=== PATIENT | female | born 1990 | race Caucasian/White ===

== ENCOUNTER 2017-01-10 07:56 | Day surgery (SDC) | payer OTHER ==
[~2017-01-10 07:56] MED LIST: Lactated Ringers 1,000 ML IV SCH; Lidocaine 1%/Sod Bicarbonate in NS 8.4% 1 ML Syringe IV PRN; Sodium Chloride 0.9% 10 ML Syringe FLUSH PRN
--- NOTE | 2017-01-10 08:40 | PCM.PREANE ---
Preanesthetic Assessment - Anesthesia/Transfusion/Family Hx Anesthesia History: Prior Anesthesia Reaction Type of Anesthesia Reaction: Excessive Nausea/Vomiting Family History of Anesthesia Reaction: No Transfusion History: No Prior Transfusion(s) - Review of Systems General: No Symptoms Pulmonary: No Symptoms Cardiovascular: No Symptoms Gastrointestinal: Abdominal pain Neurological: No Symptoms Other: Reports: None - Physical Assessment NPO Status Date: 01/09/17 NPO Status Time: 17:00 Pulse: 75 O2 Sat by Pulse Oximetry: 96 Respiratory Rate: 16 Blood Pressure: 100/65 Temperature: 36.2 C Vital Signs: Last Vital Signs Temp 36.2 C 01/10/17 08:08 Pulse 75 01/10/17 08:08 Resp 16 01/10/17 08:08 BP 100/65 01/10/17 08:08 Pulse Ox 96 01/10/17 08:08 Height: 1.73 m Weight: 85.729 kg ASA Class: 2 Mental Status: Alert & Oriented x3 Dentition: Reports: Implants (top left and metal bar on lower teeth) Thyro-Mental Finger Breadths: 3 Mouth Opening Finger Breadths: 3 ROM/Head Extension: Full Lungs: Clear to auscultation, Normal respiratory effort Cardiovascular: Regular Rate, Regular Rhythm, No Murmurs - Lab Values: Laboratory Last Values WBC 9.91 K/mm3 (3.98-10.04) 01/09/17 13:28 RBC 4.81 M/mm3 (3.98-5.22) 01/09/17 13:28 Hgb 14.4 gm/L (11.2-15.7) 01/09/17 13:28 Hct 42.5 % (34.1-44.9) 01/09/17 13:28 MCV 88.4 fl (79.4-94.8) 01/09/17 13:28 MCH 29.9 pg (25.6-32.2) 01/09/17 13:28 MCHC 33.9 g/dl (32.2-35.5) 01/09/17 13:28 RDW Std Deviation 41.9 fL (36.4-46.3) 01/09/17 13:28 Plt Count 386 K/mm3 (182-369) H 01/09/17 13:28 MPV 9.6 fl (9.4-12.3) 01/09/17 13:28 Neut % (Auto) 62.8 % (34.0-71.1) 01/09/17 13:28 Lymph % (Auto) 26.4 % (19.3-51.7) 01/09/17 13:28 [place] % (Auto) 8.1 % (4.7-12.5) 01/09/17 13:28 Eos % (Auto) 2.3 (0.7-5.8) 01/09/17 13:28 Baso % (Auto) 0.2 % (0.1-1.2) 01/09/17 13:28 Neut # (Auto) 6.22 K/mm3 (1.56-6.13) H 01/09/17 13:28 Lymph # (Auto) 2.62 K/mm3 (1.18-3.74) 01/09/17 13:28 [place] # (Auto) 0.80 K/mm3 (0.24-0.36) H 01/09/17 13:28 Eos # (Auto) 0.23 K/mm3 (0.04-0.36) 01/09/17 13:28 Baso # (Auto) 0.02 K/mm3 (0.01-0.08) 01/09/17 13:28 Creatinine 0.9 mg/dL (0.55-1.02) 01/09/17 13:28 Est Cr Clr Drug Dosing 95.55 mL/min 01/09/17 13:28 Estimated GFR (MDRD) > 60 mL/min (>60) 01/09/17 13:28 Urine Color Yellow (Yellow) 01/09/17 13:28 Urine Appearance Clear (Clear) 01/09/17 13:28 Urine pH 6.5 (5.0-8.0) 01/09/17 13:28 Ur Specific [place] 1.025 (1.005-1.030) 01/09/17 13:28 Urine Protein Trace (Negative) H 01/09/17 13:28 Urine Glucose (UA) Negative (Negative) 01/09/17 13:28 Urine Ketones Negative (Negative) 01/09/17 13:28 Urine Occult Blood Negative (Negative) 01/09/17 13:28 Urine Nitrite Negative (Negative) 01/09/17 13:28 Urine Bilirubin Negative (Negative) 01/09/17 13:28 Urine Urobilinogen 1.0 (0.2-1.0) 01/09/17 13:28 Ur Leukocyte Esterase Trace (Negative) H 01/09/17 13:28 Urine HCG, Qual Negative (NEGATIVE) 01/09/17 13:28 - Allergies Allergies/Adverse Reactions: Allergies Allergy/AdvReac Type Severity Reaction Status Date / Time morphine Allergy Intermediate Itching Verified 01/09/17 14:57 - Anesthesia Plan Pre-Op Medication Ordered: None - Acknowledgements Anesthesia Type Planned: General Anesthesia Pt an Appropriate Candidate for the Planned Anesthesia: Yes Alternatives and Risks of Anesthesia Discussed w Pt/Guardian: Yes Pt/Guardian Understands and Agrees with Anesthesia Plan: Yes PreAnesthesia Questionnaire Cardiovascular History: Reports: None Respiratory History: Reports: None Gastrointestinal History: Reports: Inflammatory bowel disease Genitourinary History: Reports: None 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 History: Reports: None Neurological History: Reports: None Psychiatric History: Reports: None Endocrine/Metabolic History: Reports: None Hematologic History: Reports: None Immunologic History: Reports: None Oncologic (Cancer) History: Reports: None Dermatologic History: Reports: None - Past Surgical History Head Surgeries/Procedures: Reports: None HEENT Surgical History: Reports: Tonsillectomy GI Surgical History: Reports: Colonoscopy - SUBSTANCE USE Smoking Status *Q: Never Smoker Second Hand Smoke Exposure: No Days Per Week of Alcohol Use: 0 Number of Drinks Per Day: 0 Total Drinks Per Week: 0 Recreational Drug Use History: No - HOME MEDS Home Medications: Home Meds Desogestrel/Ethinyl Estradiol [Apri] 1 tab PO DAILY 01/09/17 [History] - CURRENT (IN HOUSE) MEDS Current Meds: Current Medications Lactated Ringer's (Ringers, Lactated) 1,000 mls @ 125 mls/hr IV ASDIRECTED HARRISON Stop: 01/10/17 23:00 Lidocaine/Sodium Bicarbonate (Buffered Lidocaine 1% In Ns 8.4%) 0.25 ml IV ONETIME PRN PRN Reason: Prior to IV Start Stop: 01/10/17 18:00 Sodium Chloride (Saline Flush) 10 ml FLUSH ASDIRECTED PRN PRN Reason: Keep Vein Open Stop: 01/10/17 18:00 Preanesthetic Assessment - ANESTHESIA/TRANSFUSION/FAMILY HX Anesthesia/Transfusion History: No Prior Transfusion(s), Prior Anesthesia ( nausea) Family History of Anesthesia Reaction: No Intubation History: Unknown - PHYSICAL ASSESSMENT O2 Sat by Pulse Oximetry: 96 RR: 16 Vital Signs: Last Vital Signs Temp 36.2 C 01/10/17 08:08 Pulse 75 01/10/17 08:08 Resp 16 01/10/17 08:08 BP 100/65 01/10/17 08:08 Pulse Ox 96 01/10/17 08:08 Height: 1.73 m Weight: 85.729 kg NPO Status Date: 01/09/17 NPO Status Time: 17:00 - LAB Values: Laboratory Last Values WBC 9.91 K/mm3 (3.98-10.04) 01/09/17 13:28 RBC 4.81 M/mm3 (3.98-5.22) 01/09/17 13:28 Hgb 14.4 gm/L (11.2-15.7) 01/09/17 13:28 Hct 42.5 % (34.1-44.9) 01/09/17 13:28 MCV 88.4 fl (79.4-94.8) 01/09/17 13:28 MCH 29.9 pg (25.6-32.2) 01/09/17 13:28 MCHC 33.9 g/dl (32.2-35.5) 01/09/17 13:28 RDW Std Deviation 41.9 fL (36.4-46.3) 01/09/17 13:28 Plt Count 386 K/mm3 (182-369) H 01/09/17 13:28 MPV 9.6 fl (9.4-12.3) 01/09/17 13:28 Neut % (Auto) 62.8 % (34.0-71.1) 01/09/17 13:28 Lymph % (Auto) 26.4 % (19.3-51.7) 01/09/17 13:28 [place] % (Auto) 8.1 % (4.7-12.5) 01/09/17 13:28 Eos % (Auto) 2.3 (0.7-5.8) 01/09/17 13:28 Baso % (Auto) 0.2 % (0.1-1.2) 01/09/17 13:28 Neut # (Auto) 6.22 K/mm3 (1.56-6.13) H 01/09/17 13:28 Lymph # (Auto) 2.62 K/mm3 (1.18-3.74) 01/09/17 13:28 [place] # (Auto) 0.80 K/mm3 (0.24-0.36) H 01/09/17 13:28 Eos # (Auto) 0.23 K/mm3 (0.04-0.36) 01/09/17 13:28 Baso # (Auto) 0.02 K/mm3 (0.01-0.08) 01/09/17 13:28 Creatinine 0.9 mg/dL (0.55-1.02) 01/09/17 13:28 Est Cr Clr Drug Dosing 95.55 mL/min 01/09/17 13:28 Estimated GFR (MDRD) > 60 mL/min (>60) 01/09/17 13:28 Urine Color Yellow (Yellow) 01/09/17 13:28 Urine Appearance Clear (Clear) 01/09/17 13:28 Urine pH 6.5 (5.0-8.0) 01/09/17 13:28 Ur Specific [place] 1.025 (1.005-1.030) 01/09/17 13:28 Urine Protein Trace (Negative) H 01/09/17 13:28 Urine Glucose (UA) Negative (Negative) 01/09/17 13:28 Urine Ketones Negative (Negative) 01/09/17 13:28 Urine Occult Blood Negative (Negative) 01/09/17 13:28 Urine Nitrite Negative (Negative) 01/09/17 13:28 Urine Bilirubin Negative (Negative) 01/09/17 13:28 Urine Urobilinogen 1.0 (0.2-1.0) 01/09/17 13:28 Ur Leukocyte Esterase Trace (Negative) H 01/09/17 13:28 Urine HCG, Qual Negative (NEGATIVE) 01/09/17 13:28 - ALLERGIES Allergies/Adverse Reactions: Allergies Allergy/AdvReac Type Severity Reaction Status Date / Time morphine Allergy Intermediate Itching Verified 01/09/17 14:57
[2017-01-10] MEDS ORDERED: Bupivacaine 0.5% 30 ML SDV ONE (08:48)
[2017-01-10] MEDS ORDERED: Rocuronium 50 MG/5 ML Vial ONE (09:00)
[2017-01-10] MEDS ORDERED: Ondansetron 4 MG/2 ML SDV ONE (09:00)
[2017-01-10] MEDS ORDERED: fentaNYL 250 MCG/5 ML SDV ONE (09:01)
[2017-01-10] MEDS ORDERED: Midazolam 1 MG/ML 2 ML SDV ONE (09:01)
[2017-01-10] MEDS ORDERED: Propofol 200 MG/20 ML SDV ONE (09:01)
[2017-01-10] MEDS ORDERED: Dexamethasone 4 MG/ML 5 ML MDV ONE (09:02)
[2017-01-10] MEDS ORDERED: Ketorolac 30 MG/ML SDV ONE (09:02)
[2017-01-10] MEDS ORDERED: diphenhydrAMINE 50 MG/ML SDV ONE (09:02)
[2017-01-10] MEDS ORDERED: ceFAZolin 1 GM Vial ONE (09:02)
[2017-01-10] MEDS ORDERED: Lidocaine 1% 4 ML ONE (09:02)
[2017-01-10] MEDS ORDERED: Lactated Ringers 1,000 ML ONE (09:56)
[2017-01-10] MEDS ORDERED: Acetaminophen/oxyCODONE 325-5 MG Tab PO PRN (10:08)
[2017-01-10] MEDS ORDERED: Ondansetron 4 MG/2 ML SDV IVPUSH PRN (10:08)
--- NOTE | 2017-01-10 10:18 | PCM.OPNOTE ---
- General Post-Op/Procedure Note Date of Surgery/Procedure: 01/10/17 Operative Procedure(s): Laparoscopy with biopsy and cautery ablation of pelvic endometriosis Findings: Of endometriosis involving posterior sac, posterior broad ligaments and the left inguinal canal area. Appendix was surgically absent. The anterior cul-de- sac, ovaries, liver edge gallbladder without concerns. 2 small douglas from previous appendectomy were noted on the right ovary and the right posterior broad ligament respectively and were removed. Pre Op Diagnosis: Pelvic pain, endometriosis Post-Op Diagnosis: Same Primary Surgeon: Mata Pozo Secondary Surgeon: Rylee Garcia Anesthesia Provider: Kuldip Khan Resistance Welder: Deanna Max Pathology: Biopsy of posterior cul-de-sac epithelium Fluid Replacement, Intraop: 1,300 Output, Urine Amount: 300 EBL in mLs: 3 Drain/Tube Comments:: Indwelling bladder catheter during surgery only. Complications: None Condition: Good Free Text/Narrative:: Surgeon duration: 20 minutes Complications: None Specimens: Biopsy of the posterior cul-de-sac epithelium Her suture: The patient is taken to the operating room placed in supine position on the operating table. She received 2 g of Ancef preoperatively for infection prophylaxis. She had sequential pressure stockings in place for DVT prophylaxis. After adequate anesthesia patient was placed in a dorsal lithotomy position and prepped and draped in usual fashion. A indwelling bladder catheter was placed as was a uterine manipulator. Patient repositioned to the near supine position with legs in stirrups. The infraumbilical laparoscopic port site and subpubic site were then infiltrated with lidocaine approximately 3-4 cc each. Incisions were made 5 mm in length. Peritoneal is placed and pneumoperitoneum was established with a minimal amount of difficulty. Laparoscopic trocar and sleeve were placed and pneumoperitoneum was fully established. Evaluation of the pelvis and upper abdomen was undertaken. The appendix was surgically absent. Liver edge and gallbladder were noted to be normal. The entry cul-de-sac was without concerns. Right ovary and left ovary were also within normal as were the bilateral fallopian tubes. Posterior cul-de- sac however had multiple pigmented areas consistent with endometriosis. Numerous areas of clear vesicles were also noted. Findings most probably consistent with endometriosis. A public service representative area of peritoneum on the right uterosacral ligament was biopsied for histologic evaluation. The areas were then cauterized with unipolar cautery. 2 douglas, which had been placed at the time of her appendectomy, were noted on the right ovary and the right posterior broad ligament respectively and were removed. The procedures and discontinued. The pneumoperitoneum was reversed after the lower sleeve was removed under direct visualization. The incisions were closed with a single interrupted suture of 3-0 Monocryl. There further approximated with Dermabond skin glue. The indwelling bladder catheter and uterine manipulator removed at the end of procedure. Sponge, instrument and needle counts are correct at the end of procedure. Patient was awakened from general endotracheal anesthesia and left the operating room in good condition.
--- NOTE | 2017-01-10 10:24 | PCM.POSTAN ---
POST ANESTHESIA ASSESSMENT - MENTAL STATUS Mental Status: somnolent - VITAL SIGNS Pulse Rate: 82 SaO2: 95 Resp Rate: 15 Blood Pressure: 126/87 Temperature: 36.6 C - RESPIRATORY Respiratory Status: respiratory rate WNL, airway patent, O2 saturation stable, supplemental oxygen - CARDIOVASCULAR CV Status: pulse rate WNL, blood pressure stable - GASTROINTESTINAL GI Status: no symptoms - PAIN Pain Score: 0 - POST OP HYDRATION Hydration Status: adequate & stable - OBSERVATIONS Free Text/Narrative:: no anesthesia complications noted
[2017-01-10] MEDS ORDERED: fentaNYL 250 MCG/5 ML SDV IVPUSH PRN (10:27)
[2017-01-10] MEDS ORDERED: Neostigmine Methylsulfate 1 MG/ML 5 ML Syringe ONE (10:27)
[2017-01-10] MEDS: fentaNYL 100 MCG/2 ML SDV IVPUSH PRN ×2 (10:28→10:40)
[2017-01-10 12:20] VITALS: BP 105/66
[2017-01-10] MEDS ORDERED: traMADol 50 MG Tab PO ONE (12:30)
== END 2017-01-10 12:56 | disposition home or self-care (01) ==
LOC: JD.SDS 07:56
PROVIDERS: ATTEND Obstetrics & Gynecology
PROC: 0U5F4ZZ Destruction of Cul-de-sac, Percutaneous Endoscopic Approach (ICD-10-PCS; principal; 2017-01-10)
PROC: 0U544ZZ Destruction of Uterine Supporting Structure, Percutaneous Endoscopic Approach (ICD-10-PCS; 2017-01-10)
DX: N80.9 Endometriosis, unspecified (principal); Z88.6 Allergy status to analgesic agent
CPT/HCPCS: 36415; 58662; 81003; 81025; 82565; 85025; 87086; 88305; A9270; J0690; J1100; J1200; J1885; J2250; J2405; J2710; J3010; J7120; 00940; J2704

== ENCOUNTER 2017-10-24 13:45 | Emergency (ER) | payer OTHER ==
[2017-10-24 14:03] VITALS: BP 119/72
[2017-10-24] MEDS ORDERED: Sodium Chloride 0.9% 10 ML Syringe FLUSH PRN (14:49)
[2017-10-24] MEDS ORDERED: Sodium Chloride 0.9% 1,000 ML IV ONE (14:49)
--- NOTE | 2017-10-24 14:55 | EDM.PDOC ---
ED HPI GENERAL MEDICAL PROBLEM - General Chief Complaint: Chest Pain Stated Complaint: 13 WKS PREG/CHEST PAIN Time Seen by Provider: 10/24/17 14:00 Source of Information: Reports: Patient History Limitations: Reports: No Limitations - History of Present Illness INITIAL COMMENTS - FREE TEXT/NARRATIVE: Patient is a 27 y/o female who presents to the E.D. c/o of pain to the epigastric region. states while typing a email developed pain to the inferior border of her chest that wrapped around to her back. States it was sharp and crampy sensation that would wax and wane in intensiy. States it was not getting better thus she summoned a friend while getting upset. With being upset patient states she became very anxiious. Had the sensation of eyes shaking and asked a friend if so. Friend/co worker did not see eyes shaking. IN addition felt neck on the right side was twitching. 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 She is emotional during questioning. She has not c/os at this time. During this episode felt heart pounding as well that has since resolved. She has had cold like symptoms for the past two days. Mild infrequent non productive cough and faint sore throat. Believed to be due to post nasal drip. She has been eating and drinking okay. States has been mildly nauseated with . Which is normal. She has received the flu vaccination. Pregancy was confirmed. Ultrasound at 11 wks with no abnormal findings. She has no additional pmh. Epigastric Pain Score (Numeric/FACES): 6 - Related Data Allergies Allergy/AdvReac Type Severity Reaction Status Date / Time morphine Allergy Intermediate Itching Verified 01/10/17 08:36 acetaminophen [From Percocet] AdvReac Nausea Verified 10/24/17 14:04 hydrocodone [From [place]] AdvReac Nausea and Verified 10/24/17 14:04 Vomiting oxycodone [From Percocet] AdvReac Nausea Verified 10/24/17 14:04 Home Meds: Home Meds Calcium Carb & Citrate/Vit D3 [Calcium + D3 ER Tablet] 1 tab PO DAILY 10/24/17 [ History] Doxylamine Succinate [Unisom] 12.5 mg PO DAILY 10/24/17 [History] PNV95/Ferrous Fumarate/FA [ Tablet] 1 tab PO DAILY 10/24/17 [History] Pyridoxine HCl [Vitamin B-6] 100 mg PO DAILY 10/24/17 [History] Past Medical History Cardiovascular History: Reports: None Respiratory History: Reports: None Gastrointestinal History: Reports: Inflammatory Bowel Disease Genitourinary History: Reports: None 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: 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 History: Reports: None Neurological History: Reports: None Psychiatric History: Reports: None Endocrine/Metabolic History: Reports: None Hematologic History: Reports: None Immunologic History: Reports: None Oncologic (Cancer) History: Reports: None Dermatologic History: Reports: None - Past Surgical History Head Surgeries/Procedures: Reports: None HEENT Surgical History: Reports: Tonsillectomy Social & Family History - Tobacco Use Smoking Status *Q: Never Smoker Second Hand Smoke Exposure: No - Caffeine Use Caffeine Use: Reports: None - Alcohol Use Days Per Week of Alcohol Use: 0 Number of Drinks Per Day: 0 Total Drinks Per Week: 0 - Recreational Drug Use Recreational Drug Use: No Drug Use in Last 12 Months: No ED ROS GENERAL - Review of Systems Review Of Systems: See Below Constitutional: Denies: Fever, Decreased Appetite HEENT: Reports: Sinus Problem (sinus congestion), Throat Pain (intermittent) Respiratory: Denies: Shortness of Breath, Pleuritic Chest Pain, Cough, Sputum, Hemoptysis Cardiovascular: Reports: Lightheadedness. Denies: Chest Pain, Dyspnea on Exertion, Palpitations, Syncope GI/Abdominal: Reports: Nausea (morning sickiness). Denies: Abdominal Pain, Vomiting : Reports: No Symptoms 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: Reports: No Symptoms Neurological: Reports: Dizziness. Denies: Headache, Numbness, Syncope, Tingling , Difficulty Walking ED EXAM - Physical Exam Exam: See Below Exam Limited By: Uncooperative General Appearance: Alert, WD/WN, Other (emtional, tearful) Eye Exam: Bilateral Eye: EOMI, Nystagmus (none found), PERRL Ears: Normal External Exam, Normal Canal, Hearing Grossly Normal, Normal TMs Nose: Normal Inspection, Nasal Swelling, Nasal Drainage, Clear Rhinorrhea Throat/Mouth: Normal Inspection, Normal Oropharynx, Normal Voice, No Airway Compromise Head: Atraumatic, Normocephalic Neck: Normal Inspection, Supple, Non-Tender, Full Range of Motion Respiratory/Chest: No Respiratory Distress, Lungs Clear, Normal Breath Sounds, No Accessory Muscle Use, Chest Non-Tender Cardiovascular: Normal Peripheral Pulses, Regular Rate, Rhythm, No Murmur GI/Abdominal Exam: Normal Bowel Sounds, Soft, Non-Tender, No Organomegaly Back Exam: Normal Inspection Extremities: Normal Inspection, Non-Tender, No Pedal Edema, Normal Capillary Refill Neurological: Alert, Oriented, CN II-XII Intact, Normal Cognition, No Motor/ Sensory Deficits Psychiatric: Normal Affect, Anxious, Tearful Skin Exam: Warm, Dry, Intact, Normal Color, No Rash Course - Vital Signs Last Recorded V/S: Last Vital Signs Temp 98.0 F 10/24/17 13:58 Pulse 74 10/24/17 13:58 Resp 18 10/24/17 13:58 BP 119/72 10/24/17 13:58 Pulse Ox 100 10/24/17 13:58 Orthostatic Blood Pressure [ 102/63 Standing] Orthostatic Blood Pressure [ 101/62 Sitting] Orthostatic Blood Pressure [ 92/56 Supine] - Orders/Labs/Meds Labs: Laboratory Tests 10/24/17 10/24/17 10/24/17 Range/Units 15:00 15:00 15:00 WBC 8.92 (3.98-10.04) K/mm3 RBC 4.33 (3.98-5.22) M/mm3 Hgb 13.1 (11.2-15.7) gm/L Hct 38.0 (34.1-44.9) % MCV 87.8 (79.4-94.8) fl MCH 30.3 (25.6-32.2) pg MCHC 34.5 (32.2-35.5) g/dl RDW Std Deviation 43.6 (36.4-46.3) fL Plt Count 301 (182-369) K/mm3 MPV 9.6 (9.4-12.3) fl Sodium 139 (136-145) mEq/L Potassium 3.9 (3.5-5.1) mEq/L Chloride 107 (98-107) mEq/L Carbon Dioxide 20 L (21-32) mEq/L Anion Gap 15.9 H (5-15) BUN 6 L (7-18) mg/dL Creatinine 0.6 (0.55-1.02) mg/dL Est Cr Clr Drug Dosing 142.07 mL/min Estimated GFR (MDRD) > 60 (>60) mL/min BUN/Creatinine Ratio 10.0 L (14-18) Glucose 96 (74-106) mg/dL Calcium 8.9 (8.5-10.1) mg/dL Total Bilirubin 0.4 (0.2-1.0) mg/dL AST 16 (15-37) U/L ALT 13 L (14-59) U/L Alkaline Phosphatase 71 (46-116) U/L Total Protein 7.0 (6.4-8.2) g/dl Albumin 3.1 L (3.4-5.0) g/dl Globulin 3.9 gm/dL Albumin/Globulin Ratio 0.8 L (1-2) TSH 3rd Generation 0.551 (0.358-3.74) uIU/mL HCG, Quant 74606.0 mIU/mL Urine Color (Yellow) Urine Appearance (Clear) Urine pH (5.0-8.0) Ur Specific [place] (1.005-1.030) Urine Protein (Negative) Urine Glucose (UA) (Negative) Urine Ketones (Negative) Urine Occult Blood (Negative) Urine Nitrite (Negative) Urine Bilirubin (Negative) Urine Urobilinogen (0.2-1.0) Ur Leukocyte Esterase (Negative) Urine RBC (0-5) /hpf Urine WBC (0-5) /hpf Ur Epithelial Cells (0-5) /hpf Urine Bacteria (FEW) /hpf Urine Mucus (FEW) /hpf 10/24/17 Range/Units 15:00 WBC (3.98-10.04) K/mm3 RBC (3.98-5.22) M/mm3 Hgb (11.2-15.7) gm/L Hct (34.1-44.9) % MCV (79.4-94.8) fl MCH (25.6-32.2) pg MCHC (32.2-35.5) g/dl RDW Std Deviation (36.4-46.3) fL Plt Count (182-369) K/mm3 MPV (9.4-12.3) fl Sodium (136-145) mEq/L Potassium (3.5-5.1) mEq/L Chloride (98-107) mEq/L Carbon Dioxide (21-32) mEq/L Anion Gap (5-15) BUN (7-18) mg/dL Creatinine (0.55-1.02) mg/dL Est Cr Clr Drug Dosing mL/min Estimated GFR (MDRD) (>60) mL/min BUN/Creatinine Ratio (14-18) Glucose (74-106) mg/dL Calcium (8.5-10.1) mg/dL Total Bilirubin (0.2-1.0) mg/dL AST (15-37) U/L ALT (14-59) U/L Alkaline Phosphatase (46-116) U/L Total Protein (6.4-8.2) g/dl Albumin (3.4-5.0) g/dl Globulin gm/dL Albumin/Globulin Ratio (1-2) TSH 3rd Generation (0.358-3.74) uIU/mL HCG, Quant mIU/mL Urine Color Yellow (Yellow) Urine Appearance Clear (Clear) Urine pH 7.0 (5.0-8.0) Ur Specific [place] 1.015 (1.005-1.030) Urine Protein Negative (Negative) Urine Glucose (UA) Negative (Negative) Urine Ketones Negative (Negative) Urine Occult Blood Negative (Negative) Urine Nitrite Negative (Negative) Urine Bilirubin Negative (Negative) Urine Urobilinogen 0.2 (0.2-1.0) Ur Leukocyte Esterase Negative (Negative) Urine RBC Not seen (0-5) /hpf Urine WBC Not seen (0-5) /hpf Ur Epithelial Cells 0-5 (0-5) /hpf Urine Bacteria Not seen (FEW) /hpf Urine Mucus Few (FEW) /hpf Meds: Medications Discontinued Medications Generic Name Dose Route Start Last Admin Trade Name Freq PRN Reason Stop Dose Admin Sodium Chloride 1,000 mls @ 500 mls/hr 10/24/17 14:49 10/24/17 14:58 Normal Saline IV 10/24/17 16:48 500 mls/hr ONETIME ONE Administration Sodium Chloride 10 ml 10/24/17 14:49 10/24/17 14:59 Saline Flush FLUSH 10 ml ASDIRECTED PRN Administration Keep Vein Open - Re-Assessments/Exams Free Text/Narrative Re-Assessment/Exam: IV established with normal saline 250 mL per hour. Initial labs and studies: CBC, chem 14, TSH, UA, hCG quantitative, EKG, quantitative HCG, and orthostatic vitals. Orthostatic vitals negative. 10/24/17 14:54 Will attempt heart tones as well. 10/24/17 14:58 Lab notified the ED that the quantitative hCG machine is down. EKG sinus rhythm at a rate of [address] changes noted. 10/24/17 16:24 Labs reviewed: CBC was normal, chemistry panel essentially normal , TSH 0.55 warm,and hCG quantitative was 36,606. Bedside ultrasound revealed moving fetus. Shared results of labs and ekg with patient. Vital signs are stable. She is feeling much better. She is ready to be discharged home. Departure - Departure Time of Disposition: 16:42 Disposition: Home, Self-Care 01 Condition: Good Clinical Impression: Anxiety Qualifiers: Weeks of gestation: 13 weeks Qualified Code(s): Z3A.13 - 13 weeks gestation of - Discharge Information Instructions: Panic Attacks, [id number] Referrals: Mata Pozo MD [Primary Care Provider] - Forms: ED Department Discharge, ED Return to Work/School Form Additional Instructions: As discussed labs were essentially normal. I do believe you had a anxiety attack precipitating most of the symptoms that have since resolved. Continue to monitor for any changes. Follow-up with PCP in the next week or 2 for reevaluation. Return to the ED if you develop any new or worsening symptoms. Push the fluids. Ensure balanced diet. Ensure adequate rest.
== END 2017-10-24 17:08 | disposition home or self-care (01) ==
LOC: JD.ED 13:45
DX: O99.341 Other mental disorders complicating pregnancy, first trimester (principal); F41.9 Anxiety disorder, unspecified; Z88.5 Allergy status to narcotic agent; Z88.8 Allergy status to other drugs, medicaments and biological substances; Z79.899 Other long term (current) drug therapy; Z3A.13 13 weeks gestation of pregnancy
CPT/HCPCS: 36415; 80053; 81001; 84443; 84702; 85027; 93005; 96360; 96361; 99285; J7040; J7050; 99283

== ENCOUNTER 2022-05-03 13:21 | Emergency (ER) | payer BC, OTHER ==
[2022-05-03 14:10] VITALS: BP 104/61; PULSE 60
[2022-05-03] MEDS ORDERED: Ketorolac 15 MG/ML SDV IVPUSH ONE (14:23)
[2022-05-03] MEDS ORDERED: Prochlorperazine 10 MG in Sodium Chloride 0.9% 50 ML IV ONE (14:23)
[2022-05-03] MEDS ORDERED: Lactated Ringers 1,000 ML IV ONE (14:23)
[2022-05-03] MEDS ORDERED: Prochlorperazine 10 MG/2 ML SDV IV ONE (14:30)
== END 2022-05-03 15:48 | disposition home or self-care (01) ==
LOC: JD.ED 13:21
DX: N23 Unspecified renal colic (principal); Z88.6 Allergy status to analgesic agent; Z79.899 Other long term (current) drug therapy
CPT/HCPCS: 36415; 80053; 81001; 85025; 96361; 96374; 96375; 99284; J0780; J1885; J7120